=== PATIENT | female | born 1975 | race Caucasian/White ===

== ENCOUNTER 2021-06-13 07:54 | Outpatient (REF) | payer OTHER, SELFPAY ==
--- NOTE | ~2021-06-13 | MM_ITS ---
EXAMINATION: MM SCREENING DIGITAL BREAST TOMOSYNTHESIS, BILATERAL CLINICAL INFORMATION: Screening. Asymptomatic. The lifetime risk of breast cancer based on the Tyrer-Cuzick Model is 8%. COMPARISON: Mammography: 11/18/2019, 12/05/2017; targeted left breast ultrasound 11/25/2019 TECHNIQUE: Digital breast tomosynthesis is performed in both the craniocaudal and mediolateral oblique views along with computer-aided detection (CAD). Synthesized 2D images are generated from the tomosynthesis. Additional bilateral CC and additional bilateral MLO views are provided. FINDINGS: There are scattered areas of fibroglandular density (ACR BI-RADS breast composition Category b). There are no significant masses, abnormal calcifications, or other abnormalities. Small cyst posterior outer left breast is decreased from prior exam. There are a few scattered punctate round calcifications again seen mid and anterior left breast. There is chronic bilateral nipple retraction, greater on right. No significant changes. MM/MM tomosynthesis screening BI IMPRESSION: No significant changes from prior exams. ASSESSMENT: BI-RADS 2: Benign RECOMMENDATION: Routine annual mammography screening. This patient's information was entered into a reminder system with a target due date for their next mammogram.
== END 2021-06-13 07:55 | disposition home or self-care (01) ==
LOC: HO.MAMMO 07:54
PROVIDERS: Visit Provider Internal Medicine
DX: Z12.31 Encounter for screening mammogram for malignant neoplasm of breast (principal)
CPT/HCPCS: 77063; 77067

== ENCOUNTER 2021-08-28 14:53 | Emergency (ER) | payer OTHER, SELFPAY ==
--- NOTE | ~2021-08-28 | XR_ITS ---
EXAMINATION: XR CHEST CLINICAL INFORMATION: Chest tightness COMPARISON: Previous chest x-ray November 2019 TECHNIQUE: Frontal view of the chest was obtained. FINDINGS: No significant abnormality is noted involving the heart, lungs, mediastinum, bony thorax or soft tissues. XR/XR chest 1V IMPRESSION: Unremarkable examination.
[2021-08-28 15:14] VITALS: BP 146/92; PULSE 73; RESP 18; TEMP 36.5; O2SAT 97; BMI 37.6
--- NOTE | 2021-08-28 15:15 | ECG_ITS ---
Test Reason : chest pain Blood Pressure : / mmHG Vent. Rate : 077 BPM Atrial Rate : 077 BPM P-R Int : 162 ms QRS Dur : 088 ms QT Int : 380 ms P-R-T Axes : 045 011 019 degrees QTc Int : 430 ms Normal sinus rhythm Left axis deviation Otherwise normal ECG No previous ECGs available Referred By: Generic ED Physician Electronically Signed By:KYRIE MEEK MD
[2021-08-28 15:35] LABS: MANUAL DIFF FLAG NO
[2021-08-28 15:39] LABS: Basophils Absolute Auto 0.1 X10*3/uL (0.0-0.2); Basophils Percent Auto 1.1 % (0-2); Eosinophils Absolute Auto 0.2 X10*3/uL (0.0-0.4); Eosinophils Percent Auto 2.5 % (0-4); Hematocrit 36.5 % (37.0-47.0); Hemoglobin 11.8 g/dl (12.0-16.0); Imm Gran Abs Auto 0.06 X10*3/uL (0.00-0.03); Imm Gran Pct Auto 0.7 % (0.0-0.4); Lymphocytes Absolute Auto 2.9 X10*3/uL (1.2-4.9); Lymphocytes Percent Auto 34.1 % (20-40); Mean Corpuscular HGB Conc 32.3 g/dl (31.0-35.0); Mean Corpuscular Hemoglobin 28.4 pg (27.0-33.0); Mean Corpuscular Volume 87.7 fL (80.0-98.0); Mean Platelet Volume 9.4 fL (9.4-12.3); Monocytes Absolute Auto 0.6 X10*3/uL (0.1-1.2); Neutrophils Absolute Auto 4.6 x10*3/uL (2.0-8.3); Neutrophils Percent Auto 54.6 % (45-73); Platelet Count 365 X10*3/uL (160-400); Red Blood Count 4.16 X10*6/uL (4.20-5.50); Red Cell Distribution Width 13.9 % (11.0-16.0); White Blood Count 8.4 X10*3/uL (4.8-10.8)
[2021-08-28 15:54] LABS: Anion Gap 11 (12-20); Blood Urea Nitrogen 10 mg/dL (9-16); Calcium 8.9 mg/dL (8.4-10.2); Carbon Dioxide 24 mmol/L (22-29); Chloride 109 mmol/L (96-108); Creatinine Clr Calc Pharmacy 138.6; Estimated Glomerular Filt Rate > 60; Glucose Random 97 mg/dL (60-115); Potassium 3.8 mmol/L (3.3-5.1); Sodium 140 mmol/L (135-145)
[2021-08-28 15:58] LABS: Troponin-I High Sensitivity < 3.5 ng/L (<3.5-17.0)
[2021-08-28 17:03] VITALS: BP 153/94; PULSE 74; RESP 20; TEMP 36.6; O2SAT 100
--- NOTE | 2021-08-28 17:14 | ED_ITS ---
HPI - Chest Pain General Chief Complaint: Chest Pain Stated Complaint: rt side chest pain when taking deep breath Time Seen by Provider: 08/28/21 17:13 Source: patient Mode of arrival: ambulatory Limitations: no limitations History of Present Illness HPI narrative: 46 y/o female with history of anxiety, history of pneumonia presents to the ER with right-sided chest tightness and pain along with shortness of breath, runny nose and mild sore throat that started on Thursday. She reports being around her 5-year-old niece who had a cold prior to this. Overall her symptoms have gotten better however today she states the right-sided chest pain is worse. It is worse with deep inspiration. She denies any fever or chills. She is coughing but not bringing up any phlegm. She is short of breath with exertion but not at rest. She feels like she has pneumonia. She has a history of COVID-19 back in January and she is fully vaccinated. MD complaint: chest pain Onset (ago): day(s) (4) Timing of current episode: episodic Prior episodes: Yes Onset: other (With deep breaths) Pain location: right chest Pain radiation: none Severity: moderate Pain scale (0-10): 6 Quality: sharp Relieving factors: rest Exacerbating factors: inspiration Context: recent illness Associated symptoms: cough Treatment prior to arrival: none Risk Factors Coronary artery disease risk factors: none Thoracic aortic dissection risk factors: none Pulmonary embolism risk factors: morbid obesity Related Data On Oral Contraceptives: No Home Medications Medication Instructions Recorded Confirmed escitalopram oxalate 20 mg tablet 20 mg PO DAILY 07/04/21 Previous Rx's Medication Instructions Recorded albuterol sulfate 90 mcg/actuation 1 inh INHALATION QID PRN 30 Days 02/13/21 aerosol inhaler (ProAir HFA) #18 g azithromycin 250 mg tablet See Rx Instructions .ROUTE 08/28/21 (Zithromax Z-Joel) .COMPLEX #6 tab naproxen 500 mg tablet 500 mg PO BID PRN #20 tab 08/28/21 Allergies Allergy/AdvReac Type Severity Reaction Status Date / Time fluoxetine [From PROZAC] Allergy Mild VOMITING Verified 07/04/21 13:27 Review of Systems Review of Systems: Constitutional: No Fever, No Chills ENT/Mouth: +sore throat, + Rhinorrhea, No Swallowing Difficulty Cardiovascular: + Chest Pain, + SOB, No Orthopnea, No Edema Respiratory: + Cough, No Sputum, No Wheezing, + dyspnea Gastrointestinal: No Nausea, No Vomiting, No Diarrhea, No abdominal Pain Genitourinary: No Dysuria, No Urinary Frequency, No Hematuria Musculoskeletal: No joint pain, + Myalgias Skin: No Skin Lesions, No rash Neuro: No Weakness, No Numbness, No Dizziness, No Headache Psych: + Anxiety/Panic, No Depression Heme/Lymph: No Bruising, No Lymphadenopathy Endocrine: No Polyuria, No Polydipsia [facility] Social History Social History Advance Directives: No Advance Directives Information Provided: Yes Physical Exam Vital Signs: Vital Signs: Last Vital Signs Temp 97.8 F 08/28/21 17:03 Pulse 87 08/28/21 18:00 Resp 16 08/28/21 18:00 BP 131/79 08/28/21 18:00 Pulse Ox 97 08/28/21 18:00 Body Mass Index 37.6 Appearance: Alert. Oriented X3. No acute distress. Eyes: Pupils equal, round and reactive to light. ENT: Pharynx normal. Neck: Normal inspection. Neck supple. CVS: Normal heart rate and rhythm. Pulses normal. Mild anterior chest wall tenderness. Respiratory: No respiratory distress. Breath sounds normal. Dry cough noted. Abdomen: Soft and nontender. +BS x4 Skin: Skin warm and dry. Normal skin color. Normal skin turgor. No rashes. Extremities: No lower extremity edema. Negative Jack's sign Neuro: Oriented X 3. No motor deficit. No sensory deficit. Course Course Course Narrative: 46 yo female with hx anxiety and PNA presents to the ER with dry cough, runny nose, sore throat and right sided pleuritic chest pain x3-4 days. Recent sick contact with niece. Labs are unremarkable. CXR clear. Exam is benign with no respiratory distress or hypoxia. Troponin negative. Will get DDIMER and COVID swab. Doubt PE or ACS. Patient very anxious. Reevaluation(s) Reevaluation #1: DDIMER negative and COVID negative. Will treat for acute bronchitis and have her follow up with her PCP early next week. Patient agreeable with plan. MDM - Chest Pain Medical Records Data Attestation: I reviewed the patient's medical records. Lab Data Attestation: I reviewed the patient's lab results. Result diagrams: 08/28/21 15:31 08/28/21 15:31 Labs: Lab Results 08/28/21 08/28/21 08/28/21 Range/Units 15:31 15:31 15:31 WBC 8.4 (4.8-10.8) X10*3/uL RBC 4.16 L (4.20-5.50) X10*6/uL Hgb 11.8 L (12.0-16.0) g/dl Hct 36.5 L (37.0-47.0) % MCV 87.7 (80.0-98.0) fL MCH 28.4 (27.0-33.0) pg MCHC 32.3 (31.0-35.0) g/dl RDW 13.9 (11.0-16.0) % Plt Count 365 (160-400) X10*3/uL MPV 9.4 (9.4-12.3) fL Immature Gran % (Auto) 0.7 H (0.0-0.4) % Neut % (Auto) 54.6 (45-73) % Lymph % (Auto) 34.1 (20-40) % [place] % (Auto) 7.0 (2-11) % Eos % (Auto) 2.5 (0-4) % Baso % (Auto) 1.1 (0-2) % Lymph # (Auto) 2.9 (1.2-4.9) X10*3/uL [place] # (Auto) 0.6 (0.1-1.2) X10*3/uL Eos # (Auto) 0.2 (0.0-0.4) X10*3/uL Baso # (Auto) 0.1 (0.0-0.2) X10*3/uL Abs Immat Gran (auto) 0.06 H (0.00-0.03) X10*3/uL Absolute Neuts (auto) 4.6 (2.0-8.3) x10*3/uL Absolute Nucleated RBC 0.000 (0.0-0.012) X10*3/uL Nucleated RBC % (auto) 0.0 (0.0-0.2) /100WBC D-Dimer High Sensitivty NG/ML Sodium 140 (135-145) mmol/L Potassium 3.8 (3.3-5.1) mmol/L Chloride 109 H (96-108) mmol/L Carbon Dioxide 24 (22-29) mmol/L Anion Gap 11 L (12-20) BUN 10 (9-16) mg/dL Creatinine 0.74 (0.5-1.4) mg/dL Estim Creat Clear Calc 138.6 Estimated GFR > 60 Random Glucose 97 (60-115) mg/dL Calcium 8.9 (8.4-10.2) mg/dL Troponin I High Sens < 3.5 (<3.5-17.0) ng/L COVID-19 ([facility]) (Negative) COVID-19 Clin Com 08/28/21 08/28/21 Range/Units 17:33 17:33 WBC (4.8-10.8) X10*3/uL RBC (4.20-5.50) X10*6/uL Hgb (12.0-16.0) g/dl Hct (37.0-47.0) % MCV (80.0-98.0) fL MCH (27.0-33.0) pg MCHC (31.0-35.0) g/dl RDW (11.0-16.0) % Plt Count (160-400) X10*3/uL MPV (9.4-12.3) fL Immature Gran % (Auto) (0.0-0.4) % Neut % (Auto) (45-73) % Lymph % (Auto) (20-40) % [place] % (Auto) (2-11) % Eos % (Auto) (0-4) % Baso % (Auto) (0-2) % Lymph # (Auto) (1.2-4.9) X10*3/uL [place] # (Auto) (0.1-1.2) X10*3/uL Eos # (Auto) (0.0-0.4) X10*3/uL Baso # (Auto) (0.0-0.2) X10*3/uL Abs Immat Gran (auto) (0.00-0.03) X10*3/uL Absolute Neuts (auto) (2.0-8.3) x10*3/uL Absolute Nucleated RBC (0.0-0.012) X10*3/uL Nucleated RBC % (auto) (0.0-0.2) /100WBC D-Dimer High Sensitivty < 150 NG/ML Sodium (135-145) mmol/L Potassium (3.3-5.1) mmol/L Chloride (96-108) mmol/L Carbon Dioxide (22-29) mmol/L Anion Gap (12-20) BUN (9-16) mg/dL Creatinine (0.5-1.4) mg/dL Estim Creat Clear Calc Estimated GFR Random Glucose (60-115) mg/dL Calcium (8.4-10.2) mg/dL Troponin I High Sens (<3.5-17.0) ng/L COVID-19 ([facility]) Negative (Negative) COVID-19 Clin Com See Note ECG Data ECG #1: Attestation: I personally reviewed and interpreted this ECG as follows: ECG interpretation date: 08/28/21 ECG interpretation time: 17:15 Prior ECG tracings: not available for review Interpretation: normal sinus rhythm, HR 77 bpm, normal VT interval 162 ms, t-wave inversions in leads III and V1 only. No ST segment elevations or depressions. Critical Care Time Critical Care Time Critical Care Time: No Discharge Plan Discharge Clinical Impression: Bronchitis Patient Disposition: Home, Self-Care Instructions: Costochondritis (ED), Acute Bronchitis (ED) Additional Instructions: Your chest x-ray was normal. You were negative for COVID-19. Your lab workup was unremarkable. Take the prescribed medications as directed. Rest and stay hydrated. Follow-up with your doctor next week. If you develop new or worsening symptoms call 911 or come back to the ER for further evaluation. Prescriptions: New azithromycin [Zithromax Z-Joel] 250 mg tablet See Rx Instructions .ROUTE .COMPLEX Qty: 6 RF: 0 naproxen 500 mg tablet 500 mg PO BID PRN (Reason: pain) Qty: 20 RF: 0 No Action albuterol sulfate [ProAir HFA] 90 mcg/actuation HFA aerosol inhaler 1 inh inhalation QID PRN (Reason: shortness of breath or wheezing) 30 Days Q ty: 18 RF: 0 escitalopram oxalate 20 mg tablet 20 mg PO DAILY RF: 0 Referrals: Solomon Grover MD [Primary Care Provider] - 1 Week
[2021-08-28 18:00] VITALS: BP 131/79; PULSE 87; RESP 16; O2SAT 97
[2021-08-28 18:01] LABS: D Dimer High Sensitivity < 150 NG/ML
[2021-08-28 18:10] LABS: COVID-19 Test Negative (Negative); IDNOW Serial# 9DD0AD1C
== END 2021-08-28 18:39 | disposition home or self-care (01) ==
PROVIDERS: Physician Assistant; Emergency Provider Emergency Medicine; PCP Internal Medicine
DX: J40 Bronchitis, not specified as acute or chronic (principal); Z20.822 Contact with and (suspected) exposure to COVID-19; Z79.899 Other long term (current) drug therapy
CPT/HCPCS: 36415; 71045; 80048; 84484; 85025; 85379; 87635; 93005; 99283; 99284

== ENCOUNTER 2022-06-18 07:55 | Outpatient (REF) | payer OTHER, SELFPAY ==
--- NOTE | ~2022-06-18 | MM_ITS ---
EXAMINATION: MM SCREENING DIGITAL BREAST TOMOSYNTHESIS, BILATERAL CLINICAL INFORMATION: Screening. Asymptomatic. The lifetime risk of breast cancer based on the Tyrer-Cuzick Model is 8%. COMPARISON: Mammography: 06/13/2021, 11/18/2019, 12/05/2017 TECHNIQUE: Digital breast tomosynthesis is performed in both the craniocaudal and mediolateral oblique views along with computer-aided detection (CAD). Synthesized 2D images are generated from the tomosynthesis. Additional bilateral CC views are provided. FINDINGS: There are scattered areas of fibroglandular density (ACR BI-RADS breast composition Category b). Parenchymal pattern is similar to prior exams and there is no developing density or interval mass or architectural abnormality. There is chronic mild bilateral nipple retraction again seen. The axilla are unremarkable. No abnormal calcifications. No significant changes. MM/MM tomosynthesis screening BI IMPRESSION: No significant changes from prior exams. ASSESSMENT: BI-RADS 2: Benign RECOMMENDATION: Routine annual mammography screening. This patient's information was entered into a reminder system with a target due date for their next mammogram.
== END 2022-06-18 07:56 | disposition home or self-care (01) ==
LOC: HO.MAMMO 07:55
PROVIDERS: Visit Provider Internal Medicine
DX: Z12.31 Encounter for screening mammogram for malignant neoplasm of breast (principal)
CPT/HCPCS: 77063; 77067

== ENCOUNTER 2023-07-25 07:35 | Outpatient (REF) | payer OTHER, SELFPAY | END 2023-07-25 07:36 | disposition home or self-care (01) | LOC: HO.MAMMO 07:35 | PROVIDERS: PCP Internal Medicine; Visit Provider Internal Medicine | DX: Z12.31 Encounter for screening mammogram for malignant neoplasm of breast (principal) | CPT/HCPCS: 77063; 77067 ==

== ENCOUNTER → 2023-07-25 07:45 | Outpatient (BNV) | payer OTHER, SELFPAY | PROVIDERS: PCP Internal Medicine; Visit Provider Radiology Diagnostic Radiology | DX: Z12.31 Encounter for screening mammogram for malignant neoplasm of breast (principal) | CPT/HCPCS: 77063; 77067 ==

== ENCOUNTER 2024-08-06 07:40 | Outpatient (REF) | payer OTHER, SELFPAY ==
--- NOTE | ~2024-08-06 | MM_ITS ---
EXAMINATION: MM SCREENING DIGITAL BREAST TOMOSYNTHESIS, BILATERAL CLINICAL INFORMATION: Screening. Asymptomatic. COMPARISON: Mammography: Comparison is made with available priors TECHNIQUE: Digital breast mammography with tomosynthesis is performed in both the craniocaudal and mediolateral oblique views along with computer-aided detection (CAD). FINDINGS: The breasts are heterogeneously dense, which may obscure small masses (ACR BI-RADS breast composition Category c). There are no significant masses, abnormal calcifications, or other abnormalities. MM/MM tomosynthesis screening BI IMPRESSION: No mammographic evidence of malignancy. ASSESSMENT: BI-RADS BI-RADS 1 - Negative RECOMMENDATION: Routine annual mammography screening. 1 year F/U This examination should not preclude the clinical evaluation of a suspicious palpable abnormality. This patient's information was entered into a reminder system with a target due date for their next mammogram. Electronically signed by: Dolores Andrews DO 08/15/2024 07:41 PM ELISE
== END 2024-08-06 07:41 | disposition home or self-care (01) ==
LOC: HO.MAMMO 07:40
PROVIDERS: PCP Internal Medicine; Visit Provider Internal Medicine
DX: Z12.31 Encounter for screening mammogram for malignant neoplasm of breast (principal)
CPT/HCPCS: 77063; 77067

== ENCOUNTER → 2024-08-06 07:45 | Outpatient (BNV) | payer OTHER, SELFPAY | PROVIDERS: PCP Internal Medicine; Visit Provider Internal Medicine | DX: Z12.31 Encounter for screening mammogram for malignant neoplasm of breast (principal) | CPT/HCPCS: 77063; 77067 ==